=== PATIENT | female | born 1970 | race African-American/Black ===

== ENCOUNTER 2017-11-23 18:10 | Inpatient (IN) | payer MEDICAID ==
[~2017-11-23] VITALS: Ht 170.2 cm; Wt 87.5 kg
[~2017-11-23 18:10] MED LIST: LISI-604 PO
[2017-11-23] MEDS ORDERED: ONDANSETRON HCL 4MG/2ML VIAL IV STA (19:03)
[2017-11-23] MEDS ORDERED: MORPHINE SULFATE 4 MG/ML CPJ (NOT FOR IM USE) IV STA (19:03)
[2017-11-23] MEDS ORDERED: SODIUM CHLORIDE 0.9% 1,000 ML IV ONE (19:03)
[2017-11-23] MEDS ORDERED: DIPHENHYDRAMINE 50MG/ML VIAL IV ONE (19:30)
[2017-11-23 19:33] LABS: BASOPHILS % 0.5 % (0.0-2.0); EOSINOPHILS % 0.4 % (0.0-5.0); HEMATOCRIT. 41.5 % (36.0-48.0); LYMPHOCYTES % 20.7 % (20.0-50.0); MEAN CORPUSCULAR HEMOGLOBIN 27.3 pg (28.0-32.0); MEAN CORPUSCULAR VOLUME 81.2 fL (81.0-99.0); MEAN PLATELET VOLUME 8.9 fl (7.4-10.4); MONOCYTES % 5.1 % (2.0-8.0); NEUTROPHILS % 73.3 % (40.0-76.0); PLATELET 315 x1000/uL (130-400); RED BLOOD CELL COUNT 5.11 mill/uL (4.2-5.4)
[2017-11-23 19:39] LABS: CHLORIDE 103 mEq/L (98-107)
[2017-11-23 19:40] LABS: INR 1.1; PROTHROMBIN TIME 11.1 sec (9.4-11.6)
[2017-11-23 19:41] LABS: HCG SCREEN NEGATIVE
[2017-11-23 19:42] LABS: ETHANOL BLOOD < 10 mg/dL
[2017-11-23 20:20] LABS: CLARITY URINE CLOUDY (CLEAR); COLOR URINE YELLOW (YELLOW); KETONES URINE TRACE (NEGATIVE); LEUKOCYTE ESTERASE URINE NEGATIVE (NEGATIVE); NITRITE URINE NEGATIVE (NEGATIVE); OCCULT BLOOD URINE NEGATIVE (NEGATIVE); PROTEIN URINE TRACE (NEGATIVE); SPECIFIC GRAVITY URINE 1.028 (1.005-1.030); UROBILINOGEN URINE 0.2 E.U./dL (0.2-1.0)
[2017-11-23 20:39] LABS: *AMPHETAMINES SCREEN URINE NEGATIVE (NEGATIVE); *BARBITURATES SCREEN URINE NEGATIVE (NEGATIVE); *BENZODIAZEPINES SCREEN URINE NEGATIVE (NEGATIVE); *COCAINE SCREEN URINE NEGATIVE (NEGATIVE); METHADONE URINE SCREEN NEGATIVE (NEGATIVE); OPIATES URINE SCREEN NEGATIVE (NEGATIVE); PHENCYCLIDINE URINE SCREEN NEGATIVE (NEGATIVE)
[2017-11-23 20:44] LABS: CANNABINOID URINE SCREEN PRESUMTIVE POSITIVE (NEGATIVE)
[2017-11-23] MEDS ORDERED: HYDRALAZINE 20MG/ML VIAL IV ONE ×2 (21:15→23:15)
[2017-11-23] MEDS ORDERED: METRONIDAZOLE 500 MG PREMIX 100 ML IV ONE (21:30)
[2017-11-23] MEDS ORDERED: PIPERACILLIN/TAZ 3.375G PREMIX 50 ML IV ONE (21:30)
[2017-11-23] MEDS ORDERED: CEFTRIAXONE 1 G PREMIX 50 ML IV SCH (23:15)
[2017-11-23] MEDS ORDERED: ACETAMINOPHEN 325MG TABLET PO PRN (23:15)
[2017-11-23] MEDS ORDERED: DOCUSATE SODIUM 100MG CAPSULE PO PRN (23:15)
[2017-11-23] MEDS ORDERED: HYDROCODONE/ACETAMINOPHEN 5/325MG TABLET PO PRN (23:15)
[2017-11-23] MEDS ORDERED: IPRATROPIUM/ALBUTEROL 0.5-3(2.5)MG/3ML NEB INH PRN (23:15)
[2017-11-23] MEDS ORDERED: POTASSIUM CHLORIDE 20MEQ TABLET SR PO SCH (23:15)
[2017-11-23] MEDS ORDERED: CLONIDINE 0.1MG TABLET PO PRN (23:15)
[2017-11-23] MEDS ORDERED: MAGNESIUM/ALUMINUM HYDROXIDE/SIMETHICONE 30ML UDC PO PRN (23:15)
[2017-11-23] MEDS ORDERED: ONDANSETRON HCL 4MG/2ML VIAL IV PRN (23:15)
[2017-11-24 01:45] VITALS: BP 157/79
[2017-11-24] MEDS ORDERED: ONDANSETRON 4MG ODT PO PRN (02:00)
[2017-11-24] MEDS ORDERED: AMLO10TA4 PO (02:13)
[2017-11-24 04:00] VITALS: BP 158/90
[2017-11-24 05:55] LABS: BASOPHILS % 0.4 % (0.0-2.0); EOSINOPHILS % 0.4 % (0.0-5.0); HEMATOCRIT. 38.1 % (36.0-48.0); HEMOGLOBIN. 12.8 g/dL (12.0-16.0); LYMPHOCYTES % 29.5 % (20.0-50.0); MEAN CORPUSCULAR HEMOGLOBIN 27.2 pg (28.0-32.0); MEAN CORPUSCULAR VOLUME 81.1 fL (81.0-99.0); MEAN PLATELET VOLUME 9.4 fl (7.4-10.4); MONOCYTES % 5.8 % (2.0-8.0); NEUTROPHILS % 63.9 % (40.0-76.0); PLATELET 310 x1000/uL (130-400); RED BLOOD CELL COUNT 4.69 mill/uL (4.2-5.4)
[2017-11-24 06:30] LABS: CHLORIDE 109 mEq/L (98-107)
[2017-11-24 06:40] LABS: LDL CHOLESTEROL 48 mg/dL (5-100)
[2017-11-24 06:42] LABS: HDL CHOLESTEROL 54 mg/dL (40-59)
[2017-11-24 08:00] VITALS: BP 145/85
[2017-11-24] MEDS ORDERED: METRONIDAZOLE 500 MG PREMIX 100 ML IV SCH ×2 (08:00→18:00)
[2017-11-24 12:00] VITALS: BP 150/85
[2017-11-24] MEDS ORDERED: ATOR40TA70 PO (15:52)
[2017-11-24] MEDS ORDERED: METO-539 PO (15:52)
[2017-11-24 16:00] VITALS: BP 159/90
[2017-11-24] MEDS: LISINOPRIL 40MG TABLET PO SCH (18:04)
[2017-11-24] MEDS: AMLODIPINE 10MG TABLET PO SCH (18:05)
[2017-11-24] MEDS ORDERED: IOHEXOL-300 100 ML BOTTLE ONE (20:13)
[2017-11-24 20:30] VITALS: BP 157/79
[2017-11-24] MEDS: MORPHINE SULFATE 4 MG/ML CPJ (NOT FOR IM USE) IV PRN (20:45)
[2017-11-24] MEDS: METOPROLOL TARTRATE 50MG TABLET PO SCH (20:45)
[2017-11-24] MEDS ORDERED: ATORVASTATIN CALCIUM 40MG TABLET PO SCH (21:00)
[2017-11-25 00:30] VITALS: BP 138/71
[2017-11-25] MEDS: MORPHINE SULFATE 4 MG/ML CPJ (NOT FOR IM USE) IV PRN (00:47)
[2017-11-25 04:30] VITALS: BP 141/78
[2017-11-25] MEDS ORDERED: OMEPRAZOLE 20MG CAPSULE EXTENDED RELEASE PO SCH (07:10)
[2017-11-25 07:15] LABS: BASOPHILS % 0.7 % (0.0-2.0); EOSINOPHILS % 2.6 % (0.0-5.0); HEMATOCRIT. 37.9 % (36.0-48.0); HEMOGLOBIN. 12.6 g/dL (12.0-16.0); LYMPHOCYTES % 44.8 % (20.0-50.0); MEAN CORPUSCULAR HEMOGLOBIN 26.9 pg (28.0-32.0); MEAN CORPUSCULAR VOLUME 80.9 fL (81.0-99.0); MONOCYTES % 6.6 % (2.0-8.0); NEUTROPHILS % 45.3 % (40.0-76.0); PLATELET 287 x1000/uL (130-400); RED BLOOD CELL COUNT 4.68 mill/uL (4.2-5.4); RED CELL DISTRIBUTION WIDTH 13.6 % (11.6-14.6)
[2017-11-25 07:37] LABS: CHLORIDE 108 mEq/L (98-107)
[2017-11-25 07:40] VITALS: BP 167/85
[2017-11-25 07:49] LABS: PHOSPHORUS 3.2 mg/dL (2.5-4.9)
[2017-11-25] MEDS: LISINOPRIL 40MG TABLET PO SCH (08:07)
[2017-11-25] MEDS: METOPROLOL TARTRATE 50MG TABLET PO SCH (08:07)
[2017-11-25] MEDS: AMLODIPINE 10MG TABLET PO SCH (08:08)
[2017-11-25 11:46] VITALS: BP 160/88
[2017-11-27 13:09] LABS: FECAL FAT NEUTRAL Normal (.); FECAL FAT TOTAL Normal (.)
[2017-11-28 04:16] LABS: OVA & PARASITE EXAM Final report (.)
== END 2017-11-25 12:20 | disposition left against medical advice (07) | DRG 244 ==
LOC: ER 18:30 → 8WST 21:35 → EDBEDREQTM 21:37 → EDBEDREQ 21:37 → ENRESERV 21:54
PROVIDERS: ADMIT Internal Medicine; ATTEND Internal Medicine
PROC: 30233N1 Transfusion of Nonautologous Red Blood Cells into Peripheral Vein, Percutaneous Approach (ICD-10-PCS; principal; 2017-11-20)
DX: K57.30 Diverticulosis of large intestine without perforation or abscess without bleeding (principal); I10 Essential (primary) hypertension; A09 Infectious gastroenteritis and colitis, unspecified; E87.6 Hypokalemia; F12.90 Cannabis use, unspecified, uncomplicated; Z79.82 Long term (current) use of aspirin; Z86.73 Personal history of transient ischemic attack (TIA), and cerebral infarction without residual deficits; Z79.899 Other long term (current) drug therapy
CPT/HCPCS: 36415; 71045; 74176; 74177; 80048; 80053; 80061; 80305; 81003; 82270; 82705; 83605; 83690; 83735; 83880; 84100; 84443; 84484; 84703; 85025; 85610; 86256; 86671; 87015; 87040; 87045; 87086; 87177; 87209; 87427; 87449; 87493; 89055; 93005; 93970; 96361; 96365; 96367; 96375; 99285; G0482; J0360; J0696; J1200; J2270; J2405; J2543; J3490; J7030; J7040; Q9967